=== PATIENT | male | born 1995 | race Caucasian/White ===

== ENCOUNTER 2017-07-10 06:35 | Emergency (ER) | payer SELFPAY ==
[2017-07-10 07:16] LABS: microscopic required? NO
[2017-07-10 07:26] VITALS: BP 128/82
[2017-07-10 07:38] LABS: UA SPECIFIC GRAVITY >=1.030 (1.005-1.035); urine erythrocyte NEGATIVE (NEGATIVE)
== END 2017-07-10 07:26 | disposition home or self-care (01) ==
LOC: ED 06:35
PROVIDERS: Emergency Medicine
DX: N34.2 Other urethritis (principal); A60.01 Herpesviral infection of penis; R03.0 Elevated blood-pressure reading, without diagnosis of hypertension
CPT/HCPCS: 87491; 87591; J0696

== ENCOUNTER 2018-04-25 20:04 | Emergency (ER) | payer OTHER | END 2018-04-25 23:20 | disposition other institution (70) | LOC: ED 20:04 | DX: Z02.89 Encounter for other administrative examinations (principal) ==

== ENCOUNTER 2018-04-25 20:04 | Emergency (ER) | payer SELFPAY ==
[~2018-04-25] VITALS: Ht 162.6 cm; Wt 56.7 kg
[2018-04-25 21:10] VITALS: Ht 162.6 cm; Wt 56.7 kg
[2018-04-25 22:53] LABS: AMPHETAMINE QUAL UR POSITIVE (See below)
[2018-04-25 23:13] LABS: BASOPHIL % 0.4 % (0-2); PLATELET COUNT 281 x10^3mcL (130-400)
[2018-04-25 23:29] VITALS: BP 114/70
== END 2018-04-25 23:50 | disposition other institution (70) ==
LOC: ED 20:04
PROVIDERS: Emergency Medicine
DX: F44.5 Conversion disorder with seizures or convulsions (principal); F19.10 Other psychoactive substance abuse, uncomplicated; J45.909 Unspecified asthma, uncomplicated
CPT/HCPCS: G0480